=== PATIENT | male | born 1955 | race Caucasian/White ===

== ENCOUNTER 2020-08-23 04:24 | Emergency (ER) | payer MEDICARE, OTHER ==
[~2020-08-23] VITALS: Ht 190.5 cm; Wt 90.7 kg
[2020-08-23 07:50] LABS: Acetaminophen < 2.0 ug/mL (10-30); Salicylate < 1.7 mg/dL (2.8-20.0)
[2020-08-23 09:59] LABS: Alcohol, Urine < 3.0 mg/dL (0-10); Amphetamine Screen, Urine NEGATIVE (NEGATIVE); Barbiturate Scree,Urine NEGATIVE (NEGATIVE); Benzodiazephine Screen, Urine NEGATIVE (NEGATIVE); Cannabinoid Screen, Urine NEGATIVE (NEGATIVE); Cocaine Screen, Urine NEGATIVE (NEGATIVE); Opiate Scree,Urine NEGATIVE (NEGATIVE); Phencyclidine Screen, Urine NEGATIVE (NEGATIVE)
[2020-08-23] MEDS ORDERED: LORazepam 0.5 MG TAB PO ONE (12:15)
[2020-08-23] MEDS ORDERED: ACETAMINOPHEN 325 MG TAB PO ONE (12:15)
[2020-08-24] MEDS: LORazepam 0.5 MG TAB PO PRN (16:22)
[2020-08-24 21:46] LABS: Basophils # (auto) 0 10 ^3/uL (0-0.2); Basophils % (auto) 0.4 % (0.0-2.0); Eosinophils # (auto) 0.1 10 ^3/uL (0-0.8); Eosinophils % (auto) 1.6 % (0.0-7.0); Hematocrit 35.2 % (41.0-53.0); Hemoglobin 12.1 g/dL (13.5-17.5); Lymphocytes # (auto) 1.2 10 ^3/uL (0.4-5.4); Lymphocytes % (auto) 24.6 % (10.0-50.0); Mean Corpuscular Hemoglobin 29.9 pg (28.0-32.0); Mean Corpuscular Hgb Conc. 34.5 g/dL (32.0-36.0); Mean Corpuscular Volume 86.6 fL (80.0-100.0); Monocytes # (auto) 0.3 10 ^3/uL (0-1.3); Monocytes % (auto) 5.7 % (0.0-12.0); Neutrophils # (auto) 3.4 10 ^3/uL (1.6-8.6); Neutrophils % (auto) 67.7 % (37.0-80.0); Platelet Count (auto) 205 10^3/uL (140-450); Red Blood Cells 4.07 10^6/uL (4.5-5.90)
[2020-08-24 22:08] LABS: Albumin 3.1 g/dL (3.4-5.0); BUN/Creatinine Ratio 32.1; Calcium 8.5 mg/dL (8.5-10.1); Potassium 4.2 mmol/L (3.5-5.1)
[2020-08-24 22:10] LABS: Bilirubin, Total 0.3 mg/dL (0.2-1.0); Total Protein 6.7 g/dL (6.4-8.2)
[2020-08-25] MEDS ORDERED: LORazepam 0.5 MG TAB PO ONE
[2020-08-25] MEDS: LORazepam 0.5 MG TAB PO PRN ×2 (09:29→16:55)
[2020-08-26] MEDS: LORazepam 0.5 MG TAB PO PRN ×2 (07:49→19:29)
[2020-08-26] MEDS ORDERED: LORazepam 0.5 MG TAB ONE (19:27)
[2020-08-26 19:31] VITALS: BP 138/68
== END 2020-08-26 22:40 | disposition still patient (30) ==
LOC: ER 04:24
DX: R45.851 Suicidal ideations (principal); F20.9 Schizophrenia, unspecified; F31.9 Bipolar disorder, unspecified; Z20.822 Contact with and (suspected) exposure to COVID-19
CPT/HCPCS: 36415; 71046; 80053; 80307; 80320; 80329; 83735; 85025; 85049; 87426; 93005

== ENCOUNTER 2022-02-14 17:00 | Emergency (ER) | payer MEDICARE ==
[~2022-02-14] VITALS: Ht 175.3 cm; Wt 75.6 kg
[2022-02-14 18:01] VITALS: BP 139/81
[2022-02-14 23:33] LABS: Basophils # (auto) 0 10 ^3/uL (0-0.2); Basophils % (auto) 0.4 % (0.0-2.0); Eosinophils # (auto) 0 10 ^3/uL (0-0.8); Eosinophils % (auto) 0.2 % (0.0-7.0); Hematocrit 37.8 % (41.0-53.0); Hemoglobin 12.8 g/dL (13.5-17.5); Lymphocytes # (auto) 1.7 10 ^3/uL (0.4-5.4); Lymphocytes % (auto) 21.6 % (10.0-50.0); Mean Corpuscular Hemoglobin 29.8 pg (28.0-32.0); Mean Corpuscular Hgb Conc. 33.9 g/dL (32.0-36.0); Mean Corpuscular Volume 87.9 fL (80.0-100.0); Monocytes # (auto) 0.4 10 ^3/uL (0-1.3); Monocytes % (auto) 5.6 % (0.0-12.0); Neutrophils # (auto) 5.6 10 ^3/uL (1.6-8.6); Neutrophils % (auto) 72.2 % (37.0-80.0); Nucleated Red Blood Cells % 0.1 %; Red Cell Distribution Width 13.7 % (11.8-14.3); White Blood Cell 7.8 10^3/uL (4.4-10.8)
[2022-02-14 23:58] LABS: Calcium 9.1 mg/dL (8.5-10.1); Potassium 4.3 mmol/L (3.5-5.1)
[2022-02-15] LABS: BUN/Creatinine Ratio 26.9
[2022-02-15 00:02] LABS: Bilirubin, Total 0.5 mg/dL (0.2-1.0); Total Protein 7.7 g/dL (6.4-8.2)
== END 2022-02-15 06:05 | disposition home or self-care (01) ==
LOC: ER 17:00
DX: F20.9 Schizophrenia, unspecified (principal); F88 Other disorders of psychological development; R62.7 Adult failure to thrive; Z68.24 Body mass index [BMI] 24.0-24.9, adult
CPT/HCPCS: 36415; 80053; 84484; 85025

== ENCOUNTER 2022-12-12 12:33 | Emergency (ER) | payer OTHER, MEDICARE, MEDICAID ==
[~2022-12-12] VITALS: Ht 175.3 cm; Wt 70.0 kg
[2022-12-12 13:22] VITALS: BP 133/78; PULSE 64; RESP 12; O2SAT 99
== END 2022-12-12 14:31 | disposition left against medical advice (07) ==
LOC: ER 12:33 → EDUNIT# 12:33 → EDBD 12:33 → ER 14:31
DX: R40.4 Transient alteration of awareness (principal); Z53.21 Procedure and treatment not carried out due to patient leaving prior to being seen by health care provider

== ENCOUNTER 2022-12-12 21:52 | Emergency (ER) | payer OTHER, MEDICARE, MEDICAID ==
[~2022-12-12] VITALS: Ht 172.7 cm; Wt 68.2 kg
[2022-12-13 01:13] LABS: Basophils # (auto) 0 10 ^3/uL (0-0.2); Basophils % (auto) 0.2 % (0.0-2.0); Eosinophils # (auto) 0.1 10 ^3/uL (0-0.8); Eosinophils % (auto) 0.8 % (0.0-7.0); Hematocrit 34.5 % (41.0-53.0); Hemoglobin 11.8 g/dL (13.5-17.5); Lymphocytes # (auto) 1.5 10 ^3/uL (0.4-5.4); Lymphocytes % (auto) 21.9 % (10.0-50.0); Mean Corpuscular Hemoglobin 30.4 pg (28.0-32.0); Mean Corpuscular Hgb Conc. 34.1 g/dL (32.0-36.0); Mean Corpuscular Volume 89.3 fL (80.0-100.0); Monocytes # (auto) 0.5 10 ^3/uL (0-1.3); Monocytes % (auto) 6.9 % (0.0-12.0); Neutrophils % (auto) 70.2 % (37.0-80.0); Nucleated Red Blood Cells % 0.1 %; Red Blood Cells 3.87 10^6/uL (4.5-5.90); Red Cell Distribution Width 14.3 % (11.8-14.3); White Blood Cell 7.1 10^3/uL (4.4-10.8)
[2022-12-13 01:30] LABS: Alanine Aminotransferase 17 U/L (7-40); Alkaline Phosphatase 64 U/L (46-116)
[2022-12-13 01:31] LABS: Albumin 4.4 g/dL (3.2-4.8); Anion Gap 7 (5-15); Aspartate Aminotransferase 21 U/L (13-40); BUN/Creatinine Ratio 16.7 (10.0-20.0); Bilirubin, Total 0.5 mg/dL (0.2-1.0); Blood Urea Nitrogen 14 mg/dL (9-23); Calcium 9.1 mg/dL (8.7-10.4); Carbon Dioxide 25 mmol/L (20-30); Chloride 109 mmol/L (98-107); Glucose 95 mg/dL (74-106); Potassium 3.8 mmol/L (3.5-5.1); Sodium 141 mmol/L (136-145); Total Protein 7.6 g/dL (5.7-8.2)
[2022-12-13 02:22] VITALS: BP 129/77; PULSE 60; RESP 17; TEMP 97.3; O2SAT 99
== END 2022-12-13 02:24 | disposition home or self-care (01) ==
LOC: ER 21:52
DX: K46.9 Unspecified abdominal hernia without obstruction or gangrene (principal); F41.9 Anxiety disorder, unspecified; F20.9 Schizophrenia, unspecified; Z13.9 Encounter for screening, unspecified
CPT/HCPCS: 36415; 74176; 80053; 85025

== ENCOUNTER 2022-12-13 18:23 | Emergency (ER) | payer OTHER, MEDICARE, MEDICAID ==
[~2022-12-13] VITALS: Ht 170.2 cm; Wt 63.1 kg
[2022-12-13] MEDS ORDERED: SODIUM CHLORIDE 0.9% 1,000 ML IVB ONE (20:00)
[2022-12-13] MEDS ORDERED: ONDANSETRON HCL 4 MG/2 ML VIAL IV ONE (20:00)
[2022-12-13] MEDS ORDERED: PANTOPRAZOLE 40 MG/10 ML VIAL INJ IV ONE (20:00)
[2022-12-13 20:26] LABS: Basophils # (auto) 0 10 ^3/uL (0-0.2); Eosinophils # (auto) 0 10 ^3/uL (0-0.8); Hematocrit 34.7 % (41.0-53.0); Hemoglobin 11.8 g/dL (13.5-17.5); Lymphocytes # (auto) 0.7 10 ^3/uL (0.4-5.4); Lymphocytes % (auto) 7.3 % (10.0-50.0); Mean Corpuscular Hemoglobin 29.6 pg (28.0-32.0); Mean Corpuscular Volume 87.2 fL (80.0-100.0); Monocytes # (auto) 0.3 10 ^3/uL (0-1.3); Monocytes % (auto) 3.3 % (0.0-12.0); Neutrophils # (auto) 8.5 10 ^3/uL (1.6-8.6); Neutrophils % (auto) 89.4 % (37.0-80.0); Red Blood Cells 3.97 10^6/uL (4.5-5.90); Red Cell Distribution Width 14.3 % (11.8-14.3); White Blood Cell 9.5 10^3/uL (4.4-10.8)
[2022-12-13 20:56] LABS: Alanine Aminotransferase 22 U/L (7-40); Alkaline Phosphatase 68 U/L (46-116); Calcium 9.1 mg/dL (8.7-10.4)
[2022-12-13 20:57] LABS: Albumin 4.3 g/dL (3.2-4.8); Anion Gap 12 (5-15); Aspartate Aminotransferase 19 U/L (13-40); BUN/Creatinine Ratio 27.8 (10.0-20.0); Bilirubin, Total 0.5 mg/dL (0.2-1.0); Blood Alcohol < 3.0 mg/dL (<10); Carbon Dioxide 21 mmol/L (20-30); Chloride 114 mmol/L (98-107); Glucose 100 mg/dL (74-106); Total Protein 7.2 g/dL (5.7-8.2)
[2022-12-13 21:00] LABS: Blood Urea Nitrogen 32 mg/dL (9-23); Sodium 147 mmol/L (136-145)
[2022-12-14] MEDS ORDERED: LACTATED RINGER'S 1,000 ML IV ONE (01:45)
[2022-12-14 09:00] VITALS: RESP 18; O2SAT 98
[2022-12-14] MEDS ORDERED: FOLIC ACID 1 MG, MULTIPLE VITAMIN 10 ML, MAGNESIUM SULF SDV 50% 8 MEQ, THIAMINE INJ 100... INJ SCH ×5 (12:00)
[2022-12-14 18:42] VITALS: BP 134/68; PULSE 55; RESP 17; TEMP 97.7; O2SAT 99
== END 2022-12-14 20:50 | disposition home or self-care (01) ==
LOC: ER 18:23 → EDBD 18:23 → ER 12-14 20:38
DX: F20.9 Schizophrenia, unspecified (principal); R40.4 Transient alteration of awareness; F03.90 Unspecified dementia, unspecified severity, without behavioral disturbance, psychotic disturbance, mood disturbance, and anxiety; Z86.2 Personal history of diseases of the blood and blood-forming organs and certain disorders involving the immune mechanism
CPT/HCPCS: 36415; 70450; 71045; 80053; 80320; 82962; 83735; 84484; 85025; 96360; 96361; 99285; J3411; J3475; J7030

== ENCOUNTER 2023-04-27 15:37 | Emergency (ER) | payer OTHER, MEDICARE ==
[~2023-04-27] VITALS: Ht 172.7 cm; Wt 71.8 kg
[2023-04-27 16:00] VITALS: BP 135/84; RESP 16; O2SAT 98
[2023-04-27 16:18] VITALS: PULSE 79
[2023-04-27 17:39] LABS: Basophils # (auto) 0 10 ^3/uL (0-0.2); Basophils % (auto) 0.4 % (0.0-2.0); Eosinophils # (auto) 0.1 10 ^3/uL (0-0.8); Hematocrit 36.1 % (41.0-53.0); Hemoglobin 12.1 g/dL (13.5-17.5); Lymphocytes # (auto) 1.1 10 ^3/uL (0.4-5.4); Lymphocytes % (auto) 15.1 % (10.0-50.0); Mean Corpuscular Hemoglobin 29.3 pg (28.0-32.0); Mean Corpuscular Hgb Conc. 33.4 g/dL (32.0-36.0); Mean Corpuscular Volume 87.5 fL (80.0-100.0); Monocytes # (auto) 0.4 10 ^3/uL (0-1.3); Monocytes % (auto) 5.7 % (0.0-12.0); Neutrophils # (auto) 5.5 10 ^3/uL (1.6-8.6); Neutrophils % (auto) 77.8 % (37.0-80.0); Red Blood Cells 4.13 10^6/uL (4.5-5.90); White Blood Cell 7.1 10^3/uL (4.4-10.8)
[2023-04-27 17:47] LABS: Alanine Aminotransferase 24 U/L (7-40); Albumin 4.2 g/dL (3.2-4.8); Alkaline Phosphatase 54 U/L (46-116); Anion Gap 7 (5-15); Aspartate Aminotransferase 31 U/L (13-40); BUN/Creatinine Ratio 19.1 (10.0-20.0); Bilirubin, Total 0.5 mg/dL (0.2-1.0); Blood Alcohol < 3.0 mg/dL (<10); Blood Urea Nitrogen 17 mg/dL (9-23); Calcium 9.3 mg/dL (8.5-10.1); Carbon Dioxide 26 mmol/L (20-30); Chloride 109 mmol/L (98-107); Glucose 75 mg/dL (74-106); Potassium 4.1 mmol/L (3.5-5.1); Sodium 142 mmol/L (136-145)
== END 2023-04-27 21:23 ==
LOC: ER 15:37 → EDBD 15:37 → ER 21:23
DX: F41.9 Anxiety disorder, unspecified (principal); R51.9 Headache, unspecified
CPT/HCPCS: 36415; 70450; 80053; 80320; 84484; 85025; 93005

== ENCOUNTER 2023-10-06 07:18 | Emergency (ER) | payer OTHER ==
[~2023-10-06] VITALS: Ht 177.8 cm; Wt 72.7 kg
[2023-10-06] MEDS ORDERED: IBUP1TAB4 PO (08:47)
[2023-10-06 09:14] VITALS: BP 99/65; PULSE 67; RESP 16; TEMP 97.4; O2SAT 97
== END 2023-10-06 09:28 | disposition home or self-care (01) ==
LOC: ER 07:18 → EDUNIT# 07:18 → EDBD 07:18 → ER 09:27
DX: S90.511A Abrasion, right ankle, initial encounter (principal); W18.39XA Other fall on same level, initial encounter; Y93.89 Activity, other specified; Y92.89 Other specified places as the place of occurrence of the external cause; Y99.8 Other external cause status
CPT/HCPCS: 73610

== ENCOUNTER 2024-07-07 10:44 | Inpatient (IN) | payer MEDICARE, OTHER ==
[~2024-07-07] VITALS: Ht 165.1 cm; Wt 70.5 kg
[~2024-07-07 10:44] MED LIST: IBUP1TAB4 PO
--- NOTE | 2024-07-07 11:34 | ED.PDOC ---
Altered Mental Status HPI Comments 68 y/o M, with PMHx of anxiety and schizophrenia presents to the ED for CC of ALOC. Patient states, he was sent by [facility] for a med refill. At this time, patient is unable to provide clear medical history; A&Ox2. Patient is able to successfully follow commands, but states current president to be Viplu and does not know current year. No other symptoms or modifying factors obtainable at this time due, to patient condition. Patient transferred to ER bed 24 for further care. Chief Complaint: ALOC Time Seen by MD: 12:00 Primary Care Provider: UNKNOWN Reviewed Notes: Nurses Notes, Medications, Allergies Allergies: Coded Allergies: NO KNOWN ALLERGIES (Unverified , 08/23/20) Home Meds Active Scripts Ibuprofen Micronized (Ibuprofen) 400 Mg Tab, 400 MG PO TIDWM for 7 Days, #21 TAB 0 Refills Prov:KELSEY CLIFTON NP 10/06/23 Information Source: Patient Mode of Arrival: Ambulatory Severity: Moderate Timing: Minutes Duration: Since onset Prehospital treatment: None Quality: Confusion Recent: None History of: None Associated Signs and Symptoms: None Past Medical History PAST MEDICAL HISTORY: Anxiety, Schizophrenia Surgical History: Unknown Family History Family History: Reviewed,noncontributory to illness Social History Smoker: Non-Smoker Alcohol: Denies ETOH Use Drugs: Denies Drug Use Lives In: Assisted Care Unable to Obtain due to: Altered Mental Status Physical Exam General Appearance: Moderate Distress HEENT: Normal ENT Inspection, Pharynx Normal, TMs Normal Neck: Full Range of Motion, Non-Tender, Normal, Normal Inspection Respiratory: Chest Non-Tender, Lungs Clear, No Accessory Muscle Use, No Respiratory Distress, Normal Breath Sounds Cardiovascular: No Edema, No JVD, No Murmur, No Gallop, Normal Peripheral Pulses, Regular Rate/Rhythm Breast Exam: Deferred Gastrointestinal: No Organomegaly, Non Tender, No Pulsatile Mass, Normal Bowel Sounds, Soft Genitalia: Deferred Pelvic: Deferred Rectal: Deferred Extremities: No calf tenderness, Normal capillary refill, Normal inspection, Normal range of motion, Non-tender, No pedal edema Musculoskeletal : Apperance: Normal Neurologic: Disoriented Cerebellar Function: NOT DONE Reflexes: NOT DONE Skin: Normal Color Peripheral Pulses: 3+ Radial (R), 3+ Radial (L) Lymphatic: No Adenopathy Was a procedure done? Was a procedure done?: No Differential Diagnosis (ALOC) Differential Diagnosis: Dehydration, Hypoglycemia, Other (UTI) X-Ray, Labs, Meds, VS Vital Signs Date Time Temp Pulse Resp B/P (MAP) Pulse Ox O2 Delivery O2 Flow Rate FiO2 07/07/24 12:00 61 12 98 Room Air* 0 21 07/07/24 12:00 98.7 61 12 147/77 (100) 98 98.7 07/07/24 10:55 97.7 64 18 146/76 (99) 97 97.7 Lab Test 07/07/24 12:19 07/07/24 11:21 Range/Units White Blood Count 5.7 4.4-10.8 10^3/uL Red Blood Count 3.73 L 4.5-5.90 10^6/uL Hemoglobin 11.1 L 13.5-17.5 g/dL Hematocrit 32.1 L 41.0-53.0 % Mean Corpuscular Volume 85.9 80.0-100.0 fL Mean Corpuscular Hemoglobin 29.7 28.0-32.0 pg Mean Corpuscular Hemoglobin Concent 34.5 32.0-36.0 g/dL Red Cell Distribution Width 13.1 11.8-14.3 % Platelet Count 271 140-450 10^3/uL Mean Platelet Volume 7.5 6.9-10.8 fL Neutrophils (%) (Auto) 71.9 37.0-80.0 % Lymphocytes (%) (Auto) 20.8 10.0-50.0 % Monocytes (%) (Auto) 5.4 0.0-12.0 % Eosinophils (%) (Auto) 1.6 0.0-7.0 % Basophils (%) (Auto) 0.3 0.0-2.0 % Neutrophils # (Auto) 4.1 1.6-8.6 10 ^3/uL Lymphocytes # (Auto) 1.2 0.4-5.4 10 ^3/uL Monocytes # (Auto) 0.3 0-1.3 10 ^3/uL Eosinophils # (Auto) 0.1 0-0.8 10 ^3/uL Basophils # (Auto) 0 0-0.2 10 ^3/uL Nucleated Red Blood Cells 0.0 % Sodium Level 145 136-145 mmol/L Potassium Level 3.8 3.5-5.1 mmol/L Chloride Level 111 H 98-107 mmol/L Carbon Dioxide Level 27 20-31 mmol/L Anion Gap 7 5-15 Blood Urea Nitrogen 19 9-23 mg/dL Creatinine 0.90 0.700-1.30 mg/dL Glomerular Filtration Rate Calc 94 >90 mL/min BUN/Creatinine Ratio 21.1 H 10.0-20.0 Serum Glucose 89 74-106 mg/dL Calcium Level 8.6 L 8.7-10.4 mg/dL Troponin I High Sensitivity 6 </=54 ng/L POC Glucose 112 H 70-106 mg/dl [place] [id number] Ph: [phone] DIAGNOSTIC IMAGING Diagnostic Imaging Report : [id number] Signed PATIENT: SAMANTHA BRIDGES ACCT: [id number] UNIT: [id number] : 1955 LOC: ER ROOM / BED: / AGE / SEX: 68 / M ADM STATUS: REG ER SERVICE 1204 ORDERING PHYSICIAN: ELOY VERMA MD PROCEDURE(s): CXRP - CHEST PORTABLE REASON: sob ORDER NUMBER(s): [id number], ACCESSION NUMBER(s): [id number] EXAM: XY CHEST PORTABLE REASON FOR EXAM: sob TECHNIQUE: 1 view of the chest COMPARISON: XY CHEST PORTABLE on DOS: 12/13/22 FINDINGS/IMPRESSION: LUNGS: No pleural effusion, consolidation, or pneumothorax MEDIASTINUM: Unremarkable BONES: No acute osseous abnormality OTHER: None ATED BY: CORINE CARNEY MD DICTATED DATE/TIME: 07/07/241224 SIGNED BY: OCRINE CARNEY MD SIGNED DATE/TIME: 07/07/241224 CC: Patient disoriented. Unable to get a good history. As per family has been more attentive than normal. Vitals stable. No sign of any injury. Chest x-ray reviewed does not show any acute changes. EKG reviewed does not show any acute changes. Reviewed his history. Continue monitoring. Waiting for family. Time of 1ST Reevaluation: 12:30 Reevaluation 1ST: Unchanged Patient Education/Counseling: Diagnosis, Treatment Family Education/Counseling: No Family Present Departure 1 Departure Time of Disposition: 14:04 Impression: Primary Impression: Metabolic encephalopathy Disposition: ADMITTED INPATIENT Admit to: Med Surg Condition: Guarded Critical Care Note Critical Care Time?: Yes (90 min-critical care time only) Critical care comment: Continue to monitor mental status Stability Stability form required: No Heart Score Heart Score: Heart Score Response (Comments) Value History Slightly Suspicious 0 EKG Normal 0 Age >65 2 Risk Factors >3 or Hx ASHD 2 Troponin Normal limit 0 Total 4 I personally scribed for ELOY VERMA MD ([email or web address]) on 07/07/24 at 11:34. Electronically submitted by Yessenia Siegel ([employer]). I personally scribed for ELOY VERMA MD ([email or web address]) on 07/07/24 at 12:17. Electronically submitted by Yessenia Siegel ([employer]). I personally scribed for ELOY VERMA MD ([email or web address]) on 07/07/24 at 12:45. Electronically submitted by Yessenia Siegel ([employer]). ELOY VERMA MD July 07, 2024 11:34
[2024-07-07 12:00] VITALS: PULSE 61; RESP 12; O2SAT 98
[2024-07-07] MEDS: SODIUM CHLORIDE 0.9% 1,000 ML IV ONE (12:15)
--- NOTE | 2024-07-07 12:27 | DVH ---
EXAM: XY CHEST PORTABLE REASON FOR EXAM: sob TECHNIQUE: 1 view of the chest COMPARISON: XY CHEST PORTABLE on DOS: 12/13/22 FINDINGS/IMPRESSION: LUNGS: No pleural effusion, consolidation, or pneumothorax MEDIASTINUM: Unremarkable BONES: No acute osseous abnormality OTHER: None
[2024-07-07 12:45] LABS: Basophils # (auto) 0 10 ^3/uL (0-0.2); Basophils % (auto) 0.3 % (0.0-2.0); Eosinophils # (auto) 0.1 10 ^3/uL (0-0.8); Eosinophils % (auto) 1.6 % (0.0-7.0); Hematocrit 32.1 % (41.0-53.0); Hemoglobin 11.1 g/dL (13.5-17.5); Lymphocytes # (auto) 1.2 10 ^3/uL (0.4-5.4); Lymphocytes % (auto) 20.8 % (10.0-50.0); Mean Corpuscular Hemoglobin 29.7 pg (28.0-32.0); Mean Corpuscular Hgb Conc. 34.5 g/dL (32.0-36.0); Mean Corpuscular Volume 85.9 fL (80.0-100.0); Monocytes # (auto) 0.3 10 ^3/uL (0-1.3); Monocytes % (auto) 5.4 % (0.0-12.0); Neutrophils # (auto) 4.1 10 ^3/uL (1.6-8.6); Neutrophils % (auto) 71.9 % (37.0-80.0); Platelet Count (auto) 271 10^3/uL (140-450); Red Blood Cells 3.73 10^6/uL (4.5-5.90); Red Cell Distribution Width 13.1 % (11.8-14.3); White Blood Cell 5.7 10^3/uL (4.4-10.8)
[2024-07-07 12:55] LABS: Anion Gap 7 (5-15); Carbon Dioxide 27 mmol/L (20-31); Potassium 3.8 mmol/L (3.5-5.1)
[2024-07-07 13:00] LABS: Calcium 8.6 mg/dL (8.7-10.4); Chloride 111 mmol/L (98-107); Sodium 145 mmol/L (136-145)
[2024-07-07 13:01] LABS: BUN/Creatinine Ratio 21.1 (10.0-20.0); Blood Urea Nitrogen 19 mg/dL (9-23); Glucose 89 mg/dL (74-106)
--- NOTE | 2024-07-07 13:14 | DVH ---
EXAM: CT HEAD WITHOUT CONTRAST INDICATION: altered TECHNIQUE: CT of the head without intravenous contrast. Radiation Dose : 1. Head: CT Dose: CTDI volume is 53.79 mGy. Dose-length product is 971.62 mGy*cm The dose indicators for CT are the volume Computed Tomography (CT) Dose Index (CTDIvol) and the Dose Length Product (DLP), and are measured in units of mGy and mGy-cm, respectively. These indicators are not patient dose, but values generated from the CT scanner acquisition factors. The report includes radiation exposure data for exposures received during this examination. COMPARISON: CT HEAD WITHOUT CONTRAST on DOS: 04/27/23, CT HEAD WITHOUT CONTRAST on DOS: 12/13/22 FINDINGS: There is no evidence of acute intracranial hemorrhage, extra-axial collection, mass effect, midline s hift, herniation or hydrocephalus. The ventricles, sulci and cisterns are age appropriate. The stephens-white differentiation is intact. The visualized paranasal sinuses and mastoid air cells are clear. The surrounding soft tissues and osseous structures are unremarkable. IMPRESSION: Limited examination secondary to patient motion artifact. Grossly, No acute intracranial abnormality. Radiation optimization: All CT scans at this facility use at least one of these dose optimization reema hniques: automated exposure control mA and/or kV adjustment per patient size (includes targeted exam s where dose is matched to clinical indication) or iterative reconstruction.
[2024-07-07] MEDS ORDERED: ONDANSETRON HCL 4 MG/2 ML VIAL IV PRN (16:45)
[2024-07-07] MEDS ORDERED: OLAN1TAB7 PO (16:48)
[2024-07-07] MEDS ORDERED: DIVA1TAB58 PO (16:48)
[2024-07-07] MEDS ORDERED: LISI-275 PO (16:48)
[2024-07-07] MEDS ORDERED: HYDR12.55 PO (16:48)
[2024-07-07] MEDS ORDERED: QUET50TA27 PO (16:48)
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
[2024-07-07 19:45] VITALS: RESP 16; O2SAT 98
[2024-07-07 20:03] LABS: Urine Bacteria None Seen /hpf (None Seen)
[2024-07-07 20:21] LABS: Urine Blood Negative /uL (Negative); Urine Clarity Clear (Clear); Urine Color Light-Yellow (Yellow); Urine Protein, UAD Negative (Negative); Urine Specific Gravity 1.028 (1.001-1.035); Urine Squamous Epithelial Cell None Seen /hpf (<5); Urine Urobilinogen Normal (Negative)
[2024-07-07 20:36] LABS: Amphetamine Screen, Urine Neg (NEGATIVE); Barbiturate Scree,Urine Neg (NEGATIVE); Benzodiazephine Screen, Urine Neg (NEGATIVE); Cannabinoid Screen, Urine Neg (NEGATIVE); Cocaine Screen, Urine Neg (NEGATIVE); Opiate Scree,Urine Neg (NEGATIVE); Phencyclidine Screen, Urine Neg (NEGATIVE)
[2024-07-07 21:37] VITALS: BP 156/74; PULSE 60; RESP 18; TEMP 97.8; O2SAT 98
[2024-07-07] MEDS: QUEtiapine FUMARATE 25 MG TAB PO SCH (22:06)
[2024-07-07] MEDS ORDERED: HYDR-4798 PO (23:29)
[2024-07-07 23:30] VITALS: BP 156/74; PULSE 60; RESP 18; TEMP 97.8; O2SAT 98
[2024-07-08 00:41] VITALS: BP 126/59; PULSE 55; RESP 18; TEMP 98; O2SAT 97
[2024-07-08 05:00] VITALS: BP 128/59; PULSE 63; RESP 16; TEMP 97.9; O2SAT 97
[2024-07-08 06:21] LABS: Basophils # (auto) 0 10 ^3/uL (0-0.2); Basophils % (auto) 0.6 % (0.0-2.0); Eosinophils # (auto) 0.1 10 ^3/uL (0-0.8); Eosinophils % (auto) 2.8 % (0.0-7.0); Hemoglobin 10.7 g/dL (13.5-17.5); Lymphocytes # (auto) 1.2 10 ^3/uL (0.4-5.4); Lymphocytes % (auto) 27.7 % (10.0-50.0); Mean Corpuscular Hemoglobin 29.8 pg (28.0-32.0); Mean Corpuscular Hgb Conc. 34.5 g/dL (32.0-36.0); Mean Corpuscular Volume 86.5 fL (80.0-100.0); Monocytes # (auto) 0.3 10 ^3/uL (0-1.3); Monocytes % (auto) 6.4 % (0.0-12.0); Neutrophils # (auto) 2.6 10 ^3/uL (1.6-8.6); Neutrophils % (auto) 62.5 % (37.0-80.0); Platelet Count (auto) 216 10^3/uL (140-450); Red Blood Cells 3.58 10^6/uL (4.5-5.90); White Blood Cell 4.2 10^3/uL (4.4-10.8)
[2024-07-08 06:31] LABS: Alanine Aminotransferase 21 U/L (7-40); Albumin 3.6 g/dL (3.2-4.8); Alkaline Phosphatase 57 U/L (46-116); Anion Gap 8 (5-15); Aspartate Aminotransferase 22 U/L (13-40); Bilirubin, Total 0.4 mg/dL (0.2-1.0); Blood Urea Nitrogen 12 mg/dL (9-23); Calcium 9.1 mg/dL (8.7-10.4); Carbon Dioxide 23 mmol/L (20-31); Glucose 92 mg/dL (74-106); Potassium 3.7 mmol/L (3.5-5.1); Sodium 144 mmol/L (136-145); Total Protein 6.3 g/dL (5.7-8.2)
[2024-07-08 06:37] LABS: Chloride 113 mmol/L (98-107)
[2024-07-08 09:00] VITALS: BP 138/79; PULSE 63; RESP 15; TEMP 97.9; O2SAT 97
[2024-07-08] MEDS: hydroCHLOROthiazide 25 MG TAB PO SCH (09:25)
[2024-07-08] MEDS: LISINOPRIL 5 MG TAB PO SCH (09:26)
[2024-07-08] MEDS: OLANZapine 5 MG TAB PO SCH (09:27)
[2024-07-08 13:00] VITALS: BP 124/71; PULSE 67; RESP 18; TEMP 98.1; O2SAT 95
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
[2024-07-08 17:00] VITALS: BP 143/65; PULSE 53; RESP 16; TEMP 97.9; O2SAT 97
[2024-07-08 21:00] VITALS: BP 123/68; PULSE 60; RESP 20; TEMP 98.1; O2SAT 98
[2024-07-09] VITALS (7 sets, daily range): BP systolic 101–142; BP diastolic 60–91; PULSE 53–80; RESP 17–18; TEMP 97.9–98.7; O2SAT 94–97
[2024-07-09] MEDS: ACETAMINOPHEN 325 MG TAB PO PRN (03:57)
[2024-07-09 06:36] LABS: Anion Gap 8 (5-15); Carbon Dioxide 26 mmol/L (20-31); Potassium 4.3 mmol/L (3.5-5.1); Sodium 141 mmol/L (136-145)
[2024-07-09 06:38] LABS: Calcium 9.9 mg/dL (8.7-10.4)
[2024-07-09 06:43] LABS: BUN/Creatinine Ratio 17.9 (10.0-20.0); Blood Urea Nitrogen 17 mg/dL (9-23); Glucose 92 mg/dL (74-106)
[2024-07-09 06:55] LABS: Chloride 107 mmol/L (98-107)
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
[2024-07-10] VITALS (8 sets, daily range): BP systolic 102–137; BP diastolic 59–77; PULSE 58–78; RESP 16–18; TEMP 97.7–98; O2SAT 94–98
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
[2024-07-10 13:02] LABS: COVID19 ANTIGEN SOFIA FIA NEGATIVE (NEGATIVE)
[2024-07-11 01:00] VITALS: BP 117/73; PULSE 60; RESP 17; TEMP 97.9; O2SAT 98
[2024-07-11 08:00] VITALS: PULSE 75; RESP 16; O2SAT 98
[2024-07-11 09:00] VITALS: BP_SYST 133; BP_SYST 169; BP_DIAS 50; BP_DIAS 86; PULSE 66; PULSE 72; RESP 17; RESP 19; TEMP 97.9; TEMP 98.1; O2SAT 97; O2SAT 98
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
[2024-07-11 13:00] VITALS: BP 121/72; PULSE 63; RESP 17; TEMP 97.4; O2SAT 92
== END 2024-07-11 18:25 | DRG 72 ==
LOC: ER 10:44 → OVERFLOW 16:34 → EAST 21:29
PROVIDERS: ADMIT Family Medicine; ATTEND Family Medicine
DX: G93.41 Metabolic encephalopathy (principal); F20.9 Schizophrenia, unspecified; E87.8 Other disorders of electrolyte and fluid balance, not elsewhere classified; F41.9 Anxiety disorder, unspecified; D64.9 Anemia, unspecified; Z20.822 Contact with and (suspected) exposure to COVID-19; R62.7 Adult failure to thrive; R56.9 Unspecified convulsions; K21.9 Gastro-esophageal reflux disease without esophagitis; Z79.1 Long term (current) use of non-steroidal anti-inflammatories (NSAID); Z79.899 Other long term (current) drug therapy; Z68.25 Body mass index [BMI] 25.0-25.9, adult; Z93.0 Tracheostomy status
CPT/HCPCS: 36415; 70450; 71045; 80048; 80053; 80307; 81001; 82962; 84484; 85025; 87426; 96360; 97110; 97163; 99291; 99292; G0378

== ENCOUNTER 2024-09-02 17:42 | Emergency (ER) | payer MEDICARE ==
[~2024-09-02] VITALS: Ht 177.8 cm; Wt 73.4 kg
[~2024-09-02 17:42] MED LIST changes: +DIVA1TAB58 PO; +HYDR-4798 PO; +HYDR12.55 PO; -IBUP1TAB4 PO; +LISI-275 PO; +OLAN1TAB7 PO; +QUET50TA27 PO
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
--- NOTE | 2024-09-02 18:52 | DVH ---
EXAM: CT HEAD WITHOUT CONTRAST INDICATION: injury TECHNIQUE: CT of the head without intravenous contrast. Radiation Dose : 1. Head: CT Dose: CTDI volume is 55.92 mGy. Dose-length product is 896.42 mGy*cm The dose indicators for CT are the volume Computed Tomography (CT) Dose Index (CTDIvol) and the Dose Length Product (DLP), and are measured in units of mGy and mGy-cm, respectively. These indicators are not patient dose, but values generated from the CT scanner acquisition factors. The report includes radiation exposure data for exposures received during this examination. COMPARISON: CT HEAD WITHOUT CONTRAST on DOS: 07/07/24, CT HEAD WITHOUT CONTRAST on DOS: 04/27/23, CT HEA D WITHOUT CONTRAST on DOS: 12/13/22 FINDINGS: There is no evidence of acute intracranial hemorrhage, extra-axial collection, mass effect, midline s hift, herniation or hydrocephalus. The ventricles, sulci and cisterns are age appropriate. The stephens-white differentiation is intact. Patchy periventricular and subcortical white matter hypoattenuation is nonspecific but may be related to small vessel ischemic disease. The visualized paranasal sinuses and mastoid air cells are clear. The surrounding soft tissues and osseous structures are unremarkable. IMPRESSION: No acute intracranial abnormality. Radiation optimization: All CT scans at this facility use at least one of these dose optimization reema hniques: automated exposure control mA and/or kV adjustment per patient size (includes targeted exam s where dose is matched to clinical indication) or iterative reconstruction.
[2024-09-02 19:20] VITALS: BP 116/65; PULSE 56; RESP 18; TEMP 97.5; O2SAT 98
== END 2024-09-02 19:23 | disposition home or self-care (01) ==
LOC: ER 17:42
DX: S09.8XXA Other specified injuries of head, initial encounter (principal); F20.9 Schizophrenia, unspecified; F41.9 Anxiety disorder, unspecified; Z79.899 Other long term (current) drug therapy; W01.0XXA Fall on same level from slipping, tripping and stumbling without subsequent striking against object, initial encounter; Y93.89 Activity, other specified; Y92.89 Other specified places as the place of occurrence of the external cause; Y99.8 Other external cause status
CPT/HCPCS: 70450